=== PATIENT | female | born 1950 | race Caucasian/White ===

== ENCOUNTER → 2020-07-10 13:04 | Outpatient (BNVA) | payer MEDICARE, OTHER, SELFPAY | PROVIDERS: PCP Internal Medicine; Visit Provider Physician Assistant Medical ==

== ENCOUNTER 2020-07-28 13:03 | Outpatient (REF) | payer MEDICARE, OTHER, SELFPAY ==
--- NOTE | ~2020-07-28 | CT_ITS ---
EXAMINATION: CT CHEST SCREENING CLINICAL INFORMATION: Nicotine dependence. COMPARISON: None. TECHNIQUE: Multidetector volumetric CT imaging of the chest is performed without contrast using low dose technique. Additional 2D coronal and sagittal reformatted images and axial 3D maximum intensity projection (MIP) images are generated on the CT workstation. This CT examination was performed using dose optimization techniques as appropriate, variously including the following: *Automated exposure control *Adjustment of mA and/or kV according to patient size (this includes techniques or standardized protocols for targeted exams where dose is matched to indication/reason for exam; i.e. extremities or head) *Use of iterative reconstruction technique DLP: 177 mGy-cm. FINDINGS: LUNGS: There is mild centrilobular emphysematous changes of both lungs with more prominent cystic changes in right upper lobe. There is a 3 mm nodule right upper lobe axial image 98/9. There is 3 mm calcification right lower lobe medially axial image 346/9 and noncalcified 4 mm nodule right lower lobe axial image 378, series 9. No additional lymph nodes seen. There is minimal bibasilar scarring or atelectasis. MEDIASTINUM: Slightly heterogenous enlarged thyroid gland, calcifications with hypodense nodule in the left lobe is noted. 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 The central trachea and airway appears patent except for mild deviation of trachea to the right from retrosternal goiter. Heart size and the great vessels are normal caliber. Scattered 5 mm lymph nodes are seen in the pretracheal and paratracheal soft tissues. There is no pericardial effusion seen. PLEURA: There is no pleural effusion. No pleural mass or thickening. AXILLA: The axilla and the chest wall appears unremarkable. UPPER ABDOMEN: Visualized liver, spleen, pancreas and bilateral adrenal glands are unremarkable. OSSEOUS STRUCTURES: No lytic or sclerotic process seen. There is mild ventral spondylosis. CT/CT lung screening IMPRESSION: Scattered 3 mm and less pulmonary nodules. Centrilobular emphysema, most prominent in the right upper lobe with cystic changes ASSESSMENT: Lung-RADS category 2: Benign. RECOMMENDATION: Low-dose annual CT chest.
== END 2020-07-28 13:04 | disposition home or self-care (01) ==
LOC: HO.CT 13:03
PROVIDERS: PCP Internal Medicine; Visit Provider Physician Assistant Medical
DX: Z12.2 Encounter for screening for malignant neoplasm of respiratory organs (principal); F17.210 Nicotine dependence, cigarettes, uncomplicated
CPT/HCPCS: 71271

== ENCOUNTER 2020-09-07 12:37 | Outpatient (REF) | payer MEDICARE, OTHER, SELFPAY ==
--- NOTE | ~2020-09-07 | MM_ITS ---
EXAMINATION: MM SCREENING DIGITAL BREAST TOMOSYNTHESIS, BILATERAL CLINICAL INFORMATION: Screening. Asymptomatic. Prior [id number] mammography from [place] currently unavailable. The lifetime risk of breast cancer based on the Tyrer-Cuzick Model is 4%. COMPARISON: None. TECHNIQUE: Digital breast tomosynthesis is performed in both the craniocaudal and mediolateral oblique views along with computer-aided detection (CAD). Synthesized 2D images are generated from the tomosynthesis. FINDINGS: The breasts are heterogeneously dense, which may obscure small masses (ACR BI-RADS breast composition Category c). There are no significant masses, abnormal calcifications, or other abnormalities. The axilla and skin contours are unremarkable. Radiology department staff will attempt to retrieve prior outside mammography to allow for comparison in an addendum report. MM/MM tomosynthesis screening BI IMPRESSION: No mammographic evidence of malignancy. ASSESSMENT: BI-RADS 1: Negative RECOMMENDATION: 1. Routine annual mammography screening. 2. Radiology department staff will attempt to retrieve prior out of state mammography to allow for comparison in an addendum report. This patient's information was entered into a reminder system with a target due date for their next mammogram.
== END 2020-09-07 12:38 | disposition home or self-care (01) ==
LOC: HO.MAMMO 12:37
PROVIDERS: Visit Provider Internal Medicine
DX: Z12.31 Encounter for screening mammogram for malignant neoplasm of breast (principal)
CPT/HCPCS: 77063; 77067

== ENCOUNTER 2020-09-25 11:14 | Outpatient (REF) | payer MEDICARE, OTHER, SELFPAY ==
[2020-09-25 14:01] LABS: MANUAL DIFF FLAG NO
[2020-09-25 14:08] LABS: Basophils Absolute Auto 0.1 X10*3/uL (0.0-0.2); Basophils Percent Auto 0.6 % (0-2); Eosinophils Percent Auto 0.4 % (0-4); Hemoglobin 13.7 g/dl (12.0-16.0); Imm Gran Abs Auto 0.02 X10*3/uL (0.00-0.03); Imm Gran Pct Auto 0.3 % (0.0-0.4); Lymphocytes Absolute Auto 1.9 X10*3/uL (1.2-4.9); Lymphocytes Percent Auto 24.3 % (20-40); Mean Corpuscular HGB Conc 32.6 g/dl (31.0-35.0); Mean Corpuscular Hemoglobin 32.4 pg (27.0-33.0); Mean Corpuscular Volume 99.3 fL (80-98); Mean Platelet Volume 9.6 fL (9.4-12.3); Monocytes Absolute Auto 0.6 X10*3/uL (0.1-1.2); Monocytes Percent Auto 7.3 % (2-11); Neutrophils Absolute Auto 5.4 X10*3/uL (2.0-8.3); Neutrophils Percent Auto 67.1 % (45-73); Platelet Count 237 X10*3/uL (160-400); Red Blood Count 4.23 X10*6/uL (4.20-5.50); Red Cell Distribution Width 12.9 % (11.0-16.0)
[2020-09-25 14:27] LABS: Alanine Aminotransferase 14 U/L (0-31); Albumin Level 4.7 g/dL (3.5-5.0); Alkaline Phosphatase 58 U/L (39-117); Anion Gap 15 (12-20); Aspartate Amino Transferase 28 U/L (5-31); Bilirubin Direct 0.2 mg/dL (0.0-0.5); Bilirubin Total 0.6 mg/dL (0.0-1.0); Blood Urea Nitrogen 9 mg/dL (9-16); Calcium 9.6 mg/dL (8.4-10.2); Carbon Dioxide 25 mmol/L (22-29); Chloride 103 mmol/L (96-108); Estimated Glomerular Filt Rate > 60; Glucose Random 113 mg/dL (60-115); Potassium 4.1 mmol/L (3.3-5.1); Sodium 139 mmol/L (135-145); Total Protein 7.4 g/dL (6.5-8.0)
[2020-09-25 14:50] LABS: TSH reflex Free T4 0.59 uIU/mL (0.32-4.0)
== END 2020-09-25 11:15 | disposition home or self-care (01) ==
LOC: HO.HMGCLDS 11:14
PROVIDERS: PCP Internal Medicine; Visit Provider Internal Medicine
DX: Z76.89 Persons encountering health services in other specified circumstances (principal); E03.9 Hypothyroidism, unspecified; F41.1 Generalized anxiety disorder; H53.8 Other visual disturbances; I48.0 Paroxysmal atrial fibrillation; Z72.0 Tobacco use
CPT/HCPCS: 36415; 80048; 80076; 84443; 85025

== ENCOUNTER 2023-03-11 12:02 | Outpatient (AMB) | payer MEDICARE, OTHER, SELFPAY ==
--- NOTE | 2023-03-11 12:10 | MHC.OFFWIV ---
Intake Vital Signs 03/11/23 12:11 Height 5 ft 3 in Weight 50.802 kg BMI 19.8 BP 126/70 Blood Pressure Location Lt brachial Pulse 87 Pulse Source Pulse Oximeter Temp 98.2 F Temp Source Oral Pulse Oximetry (%) 97 Oxygen Delivery Method Room Air Intake Visit Reasons: EP, left foot pain Intake Note: Pt is her today c/o Left foot pain due to hitting is against bed post x3days ago Allergies nitrofurantoin Allergy (Unknown, Verified 03/11/23 12:11) Unknown Do you need a note to return to daycare/school/sports/work: No HPI HPI Comments History of Present Illness Details This is a 72-year-old female history of anxiety, alcohol abuse presenting for evaluation of left 3rd and 4th toe pain status post stopping her toe on something on , pain has been worsening ever since. Patient reports pain is worse with movement better at rest. Patient reports painful ambulation due to toe pain. She has been walking on her heels. Denies numbness, tingling, fevers, chills. No other injury sustained after stepping toe. No previous issues with these toes. Physical exam discomfort with movement of 3rd and 4th toe. Capillary refill less than 2nd to bilateral lower extremity toes. 2+ dorsalis pedis, anterior tibialis and posterior tibialis pulses equal bilateral. No footdrop. There is slight ecchymosis to left 3rd and 4th toes. Normal sensation distally Vital signs stable. Concerns for sprain or strain versus fracture versus dislocation. No signs of neurovascular compromise or threat to [place]. Plan imaging [facility] Medical History History of nicotine dependence Paroxysmal atrial fibrillation Hypothyroidism Fusion of spine, cervical region Anxiety Spinal stenosis Arthritis Surgical History H/O right hemicolectomy History of bilateral oophorectomies Family History Mother Lung cancer, Onset Age: 69 Social History Alcohol intake: current Alcohol intake frequency: 0-2 drinks per day Cigarette Packs Per Day: 1 Years Smoked: 53 (onset 16yo) Review of Systems Const Details: Constitutional : No Weight loss, No Fever, No Chills, No Fatigue, No Malaise ENT/Mouth : No sore throat, No Rhinorrhea Eyes: No Eye Pain, No Swelling, No Redness Cardiovascular : No Chest Pain, No SOB, No Dyspnea on Exertion, No Orthopnea, No Edema, No Palpitations Respiratory : No Cough, No Sputum, No Wheezing Gastrointestinal : No Nausea, No Vomiting, No Diarrhea, No Constipation, No abdominal Pain, No Hematochezia, No Melena Genitourinary : No Dysuria, No Urinary Frequency, No Hematuria, Musculoskeletal : + joint pain, No Myalgias, + Joint Swelling Skin : No Skin Lesions, No rash Neuro : No Weakness, No Numbness, No Dizziness, No Headache Psych : No Anxiety/Panic, No Depression All other systems reviewed and are negative All systems reviewed & are unremarkable except as noted in HPI and below Physical Exam Vital Signs: Last Vital Signs Temp 98.2 F 03/11/23 12:11 Pulse 87 03/11/23 12:11 BP 126/70 03/11/23 12:11 Pulse Ox 97 03/11/23 12:11 Oxygen Delivery Method Room Air 03/11/23 12:11 BMI result Body Mass Index 19.8 vss Appearance: Alert.? Oriented X3.? No acute distress.? Head: Normocephalic, atraumatic, no step-offs or deformities Eyes: Pupils equal, round and reactive to light.? ENT: Pharynx normal.? Neck: Normal inspection.? Neck supple.? CVS: Normal heart rate and rhythm.? Pulses normal.? Respiratory: No respiratory distress.? Breath sounds normal.? Abdomen: Soft and nontender.? Skin: Skin warm and dry.? Normal skin color.? Normal skin turgor.? Extremities: No lower extremity edema.? No calf ttp. 5/5 strength to bilateral upper and lower extremities. discomfort with movement of 3rd and 4th toe. Capillary refill less than 2nd to bilateral lower extremity toes. 2+ dorsalis pedis, anterior tibialis and posterior tibialis pulses equal bilateral. No footdrop. There is slight ecchymosis to left 3rd and 4th toes. Neuro: Oriented X 3.? No motor deficit.? No sensory deficit. CN 2-12 intact Assessment & Plan Assessment & Plan (1) Toe pain: Code(s): M79.676 - Pain in unspecified toe(s) Plan Take your medications as prescribed. If you were prescribed antibiotics today, it is important that you take your medication to their entirety, do not skip any doses, do not finish them early. Follow-up with your primary care provider this week. Return to the emergency department with new or worsening symptoms. Such as fevers, chills, chest pain, shortness of breath, nausea, vomiting, dizziness, headache, vision changes, lethargy In case of emergency call 911 Orders: Orders XR foot LT 2V Today M79.676 - Pain in unspecified toe(s) Medications: New clotrimazole 1% (Athlete's Foot (clotrimazole)) 1 appl topical BID 15 grams 0RF 2 weeks Coding Level of Care Code Est Pt Level 3 (06984) Diagnoses Toe pain M79.676
[2023-03-11 12:11] VITALS: BP 126/70; PULSE 87; TEMP 36.8; O2SAT 97; BMI 19.8
== END 2023-03-11 14:57 | disposition home or self-care (01) ==
PROVIDERS: PCP Internal Medicine; Visit Provider Physician Assistant
DX: M79.675 Pain in left toe(s) (principal)
CPT/HCPCS: 99213

== ENCOUNTER 2023-03-11 12:19 | Outpatient (REF) | payer MEDICARE, OTHER, SELFPAY ==
--- NOTE | ~2023-03-11 | XR_ITS ---
EXAMINATION: XR FOOT, LEFT CLINICAL INFORMATION: Pain COMPARISON: None available. TECHNIQUE: AP, lateral, and oblique views of the left foot. FINDINGS: No acute visible fracture or dislocation. Multi joint arthritic changes. Slight enthesopathy at the Achilles tendon insertion site. Mild spurring the dorsal midfoot. Joint spaces and alignment are otherwise maintained. XR/XR foot LT 2V IMPRESSION: 1. No acute visible fracture or dislocation. 2. Multi joint arthritic changes. 3. Slight enthesopathy at the Achilles tendon insertion site.
== END 2023-03-11 12:20 | disposition home or self-care (01) ==
LOC: HO.HMGCX 12:19
PROVIDERS: PCP Nurse Practitioner Family; Visit Provider Physician Assistant
DX: M79.675 Pain in left toe(s) (principal)
CPT/HCPCS: 73620